=== PATIENT | male | born 1985 | race Caucasian/White ===

== ENCOUNTER 2019-06-30 13:25 | Emergency (ER) | payer OTHER ==
[~2019-06-30] VITALS: Ht 190.5 cm; Wt 86.2 kg
[2019-06-30 14:06] LABS: URINE AMPHETAMINES < 1000 (1000ng/ml); URINE BARBITURATES < 200 (200ng/ml); URINE BENZODIAZEPINES < 200 (200ng/ml); URINE CANNABINOIDS (THC) < 50 (50ng/ml); URINE COCAINE < 300 (300ng/ml); URINE METHADONE < 300 (300ng/ml); URINE OPIATES < 300 (300ng/ml)
[2019-06-30 14:08] LABS: URINE PHENCYCLIDINE < 25 (25ng/ml)
== END 2019-06-30 14:31 | disposition home or self-care (01) ==
LOC: ED 13:25
PROVIDERS: Physician Assistant
DX: T50.901A Poisoning by unspecified drugs, medicaments and biological substances, accidental (unintentional), initial encounter (principal); H91.09 Ototoxic hearing loss, unspecified ear; H53.8 Other visual disturbances; Z88.1 Allergy status to other antibiotic agents; Y92.89 Other specified places as the place of occurrence of the external cause